=== PATIENT | male | born 1945 | race Caucasian/White ===

== ENCOUNTER 2017-11-28 13:25 | Outpatient (CLI) | payer MEDICARE ==
[2017-11-28 14:07] LABS: Bilirubin Negative (Negative); Blood, Urine Trace (Negative); Clarity CLEAR (Clear); Glucose, Urine (Dipstick) Negative (Negative); Leukocyte Negative (Negative); Nitrite Negative (Negative); Protein, Urine (Dipstick) Negative (Neg-Trace); Specific Gravity, Urine 1.016 (1.002-1.036); Urobilinogen 0.2 mg/dL (0.2-1.0)
[2017-11-28 14:08] LABS: Hemoglobin 16.7 g/dL (14.0-18.0); Mean Corpuscular HGB CONC 34.1 g/dL (32.0-36.0); Mean Corpuscular Hemoglobin 32.7 pg (27.0-31.0); Mean Platelet Volume 6.4 fL (7.4-10.4); Platelet Count 321 thou/uL (130-400); RBC Distribution Width 11.5 % (11.5-14.5); Red Blood Cell (RBC) Count 5.11 mill/uL (4.70-6.10); White Blood Cell (WBC) Count 9.5 thou/uL (4.8-10.8)
[2017-11-28 14:09] LABS: Bacteria/HPF None Seen HPF (None Seen); Hyaline Casts/LPF 0-3 HYALINE CAST LPF (0-3 Hyaline); Squamous Epithelial None Seen HPF (0-3); WBC/HPF 0-3 HPF (0-3)
[2017-11-28 14:13] LABS: Prothrombin Time 13.6 SEC (12.0-14.7)
[2017-11-28 14:14] LABS: PTT 36.7 SEC (22.9-36.1)
[2017-11-28 14:27] LABS: Anion Gap 15 mmol/L (10-20); BUN (Urea Nitrogen) 18 mg/dL (8.4-25.7); Calc. Creatinine Clearance 0 mL/min (70-130); Calcium 9.8 mg/dL (7.8-10.44); Carbon Dioxide 27 mmol/L (23-31); Chloride 104 mmol/L (98-107); Estimated GFR-MDRD Greater than 90; Glucose 99 mg/dL (80-115); Potassium 3.8 mmol/L (3.5-5.1); Sodium 142 mmol/L (136-145)
--- NOTE | 2017-12-12 22:43 | EKG ---
Test Reason : Blood Pressure : / mmHG Vent. Rate : 053 BPM Atrial Rate : 053 BPM P-R Int : 198 ms QRS Dur : 140 ms QT Int : 438 ms P-R-T Axes : 050 -54 076 degrees QTc Int : 410 ms Sinus bradycardia Left ventricular hypertrophy with QRS widening Inferior infarct , age undetermined Anterolateral infarct , age undetermined Abnormal ECG No previous ECGs available Confirmed by Deena AVINA ([id number]) on 12/12/2017 10:43:02 PM Referred By: BRIA Confirmed By:Deena AVINA
== END 2017-11-28 13:26 | disposition home or self-care (01) ==
LOC: LABBT 13:25
PROVIDERS: ATTEND Urology
DX: Z01.818 Encounter for other preprocedural examination (principal); N20.0 Calculus of kidney
CPT/HCPCS: 80048; 81001; 85027; 85610; 85730; 87086; 93005; 93010

== ENCOUNTER 2017-12-11 11:01 | Day surgery (SDC) | payer MEDICARE ==
[2017-12-11] MEDS ORDERED: Levofloxacin 500 mg/D5W 100 ml Premix Bag ONE (12:49)
[2017-12-11] MEDS ORDERED: Midazolam HCl 2 mg/2 ml Vial ONE (13:29)
[2017-12-11] MEDS ORDERED: Fentanyl 100 MCG/2 ML VIAL ONE (13:30)
[2017-12-11] MEDS ORDERED: PROPOFOL 200 MG/20 ML VIAL ONE (13:53)
[2017-12-11] MEDS ORDERED: ePHEDrine/0.9% NaCl/PF SYRINGE 50 mg/10 ml ONE (13:53)
[2017-12-11] MEDS ORDERED: Lidocaine 1% PF 5 ML VIAL ONE (13:53)
--- NOTE | 2017-12-11 18:23 | OP ---
DATE OF PROCEDURE: 12/11/2017 SERVICE: Urology. SURGEON: Fraknlyn Castelan M.D. PREOPERATIVE DIAGNOSIS: Right renal stone. POSTOPERATIVE DIAGNOSIS: Right renal stone. PROCEDURE PERFORMED: Right ureteroscopy, laser lithotripsy, basket extraction of stone, and placemen t of a 6 x 30 double-J stent. INDICATIONS FOR PROCEDURE: Mr. Graham is a 72-year-old white male who I have followed for BPH and n ephrolithiasis. He had a known 6-mm stone in his right kidney, which we had been following; unfortun ately, they grew significantly to 13 mm on repeat x-ray at 1 year. Due to the significant interval g maren, I have recommended we treat the stone and he is now coming in for said procedure. Risks and b enefits have been discussed and he has agreed to proceed forward. DESCRIPTION OF PROCEDURE: After identification of his armband and verification of consent, the patie ramon was brought back to the operating room and underwent general anesthesia with LMA. He was placed i n dorsal lithotomy position and prepped and draped in usual sterile fashion. After appropriate timeo ut, a lubricated 22 Nigerien rigid cystoscope was introduced per urethra into the bladder. The bladder showed grade 2-3 trabeculation with multiple cellules, no diverticula. Ureter was in orthotopic loc ation. The prostate was hypertrophic. He did start bleeding during the case just due to the passage of the cystoscope. The right ureteral orifice was cannulated with a 0.035 sensor wire up to the lev el of the renal pelvis. The cystoscope was then removed after the bladder was emptied and a dual-lum en catheter was advanced over the sensor wire into the mid ureter. An Amplatz Super Stiff wire was t hen passed through the second lumen up to the level of the renal pelvis and the dual lumen removed an d 11/13 x 46 cm ureteral access sheath was then advanced over the Super Stiff wire up to the level of the proximal ureter. Inner cannula and the Super Stiff wire were then removed leaving the outer she ath in place and the sensor wire was in place as a safety wire. A flexible digital ureteroscope was then passed into the ureteral access sheath into the kidney. Attention was turned to calices. The s tone was found in one of the upper pole calices and the remainder of the cavity did not demonstrate a ny other nephrolithiasis. A 200 micron laser fiber was used to fragment the stone into small pieces on the dusting setting. A 1.9 Nigerien 0 tip nitinol basket was used to remove the larger fragments fo und at the end of fragmentation. Upon completion, there were no fragments over 1 mm in size. The re maining fragments were all just dust particulate and very small stone particles. I felt these would pass without much difficulty. A pull back ureteroscopy was employed and there were no other addition al stone fragments seen within the ureter. The ureteral access sheath and the scope were then remove d and the cystoscope was backloaded over the sensor wire back into the bladder. There was a signific ant amount of clot and blood within the bladder from bleeding from the prostate which was evacuated v ia the cystoscope. A 6 x 30 double-J stent with a string attached was advanced over the sensor wire up to the level of the renal pelvis. The wire was then removed leaving a good curl in the renal pelv is and good curl in the bladder. The bladder was evacuated using the cystoscope and then removed justina ving the string intact. The cystoscope was then put back in alongside the string to evaluate the ure thra and prostate and bladder. There was no bleeding from the bladder, but the bladder neck and some of the lobes of the prostate did not exhibit mild bleeding. I did not feel this was bad enough to w arrant any type of fulguration or resection as the bleeding should stop on its own; therefore, the cy stoscope was then removed after draining the bladder and the string affixed to the patient's penis wi th a Tegaderm. The patient was then awakened and taken to PACU for recovery in stable condition. COMPLICATIONS: None. ESTIMATED BLOOD LOSS: Minimal. RETAINED TUBES AND DRAINS: A 6 x 30 double-J stent on the right with string attached. SPECIMENS: Stone for stone analysis. DISPOSITION: The patient will be discharged home and instructed to remove his stent after approximat jarrod 1 week. I will then see him in followup in 1-2 weeks for a postop check.
== END 2017-12-11 17:20 | disposition home or self-care (01) ==
LOC: SDC 11:01
PROVIDERS: ATTEND Urology
PROC: 0TC08ZZ Extirpation of Matter from Right Kidney, Via Natural or Artificial Opening Endoscopic (ICD-10-PCS; principal; 2017-12-11)
PROC: 0T768DZ Dilation of Right Ureter with Intraluminal Device, Via Natural or Artificial Opening Endoscopic (ICD-10-PCS; 2017-12-11)
DX: N20.0 Calculus of kidney (principal); N40.0 Benign prostatic hyperplasia without lower urinary tract symptoms; I10 Essential (primary) hypertension; F17.210 Nicotine dependence, cigarettes, uncomplicated; I25.10 Atherosclerotic heart disease of native coronary artery without angina pectoris; I25.2 Old myocardial infarction; Z87.442 Personal history of urinary calculi; Z79.82 Long term (current) use of aspirin; Z79.899 Other long term (current) drug therapy
CPT/HCPCS: 52356; 76001; 82365; 88300; C1758; C1769; J1956; J2001; J2250; J2704; J3010

== ENCOUNTER 2018-01-10 07:21 | Day surgery (SDC) | payer MEDICARE ==
[2018-01-09 10:15] VITALS: BMI 26.7
[2018-01-10] MEDS ORDERED: Ketorolac Tromethamine 30 MG/ML VIAL ONE (07:57)
[2018-01-10] MEDS ORDERED: CEFAZOLIN/Water 2 GM/20 ML SYRINGE ONE (07:57)
[2018-01-10 08:11] LABS: #Eosinphils 0.4 thou/uL (0.0-0.7); #Lymphocytes 1.1 thou/uL (1.20-3.40); #Monocytes 0.7 thou/uL (0.11-0.59); #Neutrophils 7.1 thou/uL (1.40-6.50); %Basophils 0.4 % (0.0-1.0); %Eosinophils 4.2 % (0.0-10.0); %Lymphocytes 11.8 % (21.0-51.0); %Monocytes 7.2 % (0.0-10.0); %Neutrophils 76.4 % (42.0-75.0); Hemoglobin 16.1 g/dL (14.0-18.0); Mean Corpuscular HGB CONC 33.8 g/dL (32.0-36.0); Mean Corpuscular Hemoglobin 33.6 pg (27.0-31.0); Mean Corpuscular Volume 99.4 fl (80.0-94.0); Mean Platelet Volume 6.4 fL (7.4-10.4); Platelet Count 308 thou/uL (130-400); RBC Distribution Width 11.6 % (11.5-14.5); Red Blood Cell (RBC) Count 4.79 mill/uL (4.70-6.10); White Blood Cell (WBC) Count 9.3 thou/uL (4.8-10.8)
[2018-01-10 08:18] LABS: Anion Gap 11 mmol/L (10-20); BUN (Urea Nitrogen) 12 mg/dL (8.4-25.7); Calc. Creatinine Clearance 121 mL/min (70-130); Calcium 9.6 mg/dL (7.8-10.44); Carbon Dioxide 31 mmol/L (23-31); Chloride 102 mmol/L (98-107); Estimated GFR-MDRD Greater than 90; Glucose 110 mg/dL (80-115); Potassium 3.7 mmol/L (3.5-5.1); Sodium 140 mmol/L (136-145)
[2018-01-10] MEDS ORDERED: Bupivacaine/Epinephrine 0.25% 30 ML VIAL ONE (08:54)
[2018-01-10] MEDS ORDERED: Fentanyl 100 MCG/2 ML VIAL ONE (08:56)
[2018-01-10] MEDS ORDERED: HYDROcodone/Acetaminophen 7.5/325 mg Tablet ONE ×2 (11:52→13:13)
[2018-01-10] MEDS ORDERED: Dexamethasone 20 MG/5 ML VIAL ONE (13:25)
[2018-01-10] MEDS ORDERED: PHENYLEPHRINE-NS 100 MCG/ML 10 ML SYRINGE ONE (13:25)
[2018-01-10] MEDS ORDERED: Lidocaine 1% PF 5 ML VIAL ONE (13:25)
[2018-01-10] MEDS ORDERED: Glycopyrrolate 0.2 MG/ML 5 ML SYRINGE ONE (13:25)
[2018-01-10] MEDS ORDERED: PROPOFOL 200 MG/20 ML VIAL ONE (13:25)
[2018-01-10] MEDS ORDERED: ePHEDrine/0.9% NaCl/PF SYRINGE 50 mg/10 ml ONE (13:25)
[2018-01-10] MEDS ORDERED: Tamsulosin HCl 0.4 MG CAP ONE (15:39)
--- NOTE | 2018-01-11 09:38 | OP ---
DATE OF PROCEDURE: 01/10/2018 PREOPERATIVE DIAGNOSIS: Right inguinal hernia. POSTOPERATIVE DIAGNOSIS: Right inguinal hernia, direct. OPERATION PERFORMED: Robotic right inguinal hernia repair. SURGEON: David Kilpatrick M.D. ANESTHESIA: General endotracheal. INDICATIONS: The patient is a 72-year-old white male. He presents with a large visible and palpable right inguinal hernia and is taken to the operating room at this time for repair. Informed consent was obtained. The patient was taken to the operating room where general endotrachea l anesthesia was obtained with the patient in supine position. Huizar catheter was placed, abdominal hair was trimmed and the abdomen was prepped with ChloraPrep and draped in sterile fashion. Local an esthetic was infiltrated and 12 mm supraumbilical incision was created, through which a Veress needle was passed into the peritoneal cavity and pneumoperitoneum established using carbon dioxide up to a pressure of 15 mmHg. A 12-mm trocar port was passed through the same incision. Laparoscopic camera was passed through this port. Under direct vision, 2 additional 8 mm robotic ports were placed on ei ther side of midline at the supraumbilical level. The robotic camera was passed through the supraumbilical port and the robot was then docked to the po rts and to the camera. The operation was continued from the robotic console. The hernia was clearly identified. A transverse peritoneal incision was created several centimeters above the hernia. A preperitoneal dissection was then carried inferiorly. To the medial aspect, dis section was carried down onto the pubic tubercle and Vitaliy's ligament. Laterally, the iliopubic tra ct was dissected and a space was created for placement of the mesh. In the center, the peritoneum wa s carefully dissected out of the hernia defect and away from surrounding structures. The peritoneum was dissected off of the cord structures well past the bifurcation with the vas deferens. Once the preperitoneal space was fully dissected, a large 3DMax mesh patch was obtained and placed in the preperitoneal space. It was secured in place with 3 interrupted sutures of 3-0 Vicryl, one to t he pubic tubercle, one to the anterior/superior aspect of the mesh patch, and one to the lateral aspe ct of the mesh tail. Each of these 2-0 Vicryl sutures were tied intracorporeal. The peritoneum was then closed using a running suture of 3-0 Stratafix. Once the area was closed and hemostasis was meticulous, the robot was undocked from the instruments a nd operation was continued at the table again. The fascia at the supraumbilical port was closed with 0 Vicryl suture using a GraNee needle. All por ts and instruments removed under direct vision. Pneumoperitoneum was carefully evacuated. Quarter p ercent Marcaine with epinephrine was infiltrated at each port site. Skin edges approximated with 4-0 Monocryl subcuticular suture. Dermabond was placed externally. There were no complications. Patie nt tolerated the procedure well and was taken to recovery room in stable condition. FINDINGS: On this patient, the hernia was a large direct hernia. There was no evidence of an indire ct hernia. There were no complications and blood loss was negligible. Patient tolerated the procedu re well.
== END 2018-01-10 17:40 | disposition home or self-care (01) ==
LOC: SDC 07:21
PROVIDERS: ATTEND Specialist
PROC: 0YU54JZ Supplement Right Inguinal Region with Synthetic Substitute, Percutaneous Endoscopic Approach (ICD-10-PCS; principal; 2018-01-10)
DX: K40.90 Unilateral inguinal hernia, without obstruction or gangrene, not specified as recurrent (principal); Z88.8 Allergy status to other drugs, medicaments and biological substances; Z79.82 Long term (current) use of aspirin; Z79.899 Other long term (current) drug therapy
CPT/HCPCS: 49650; 80048; 85025; C1781; 36415; J0131; J1100; J1885; J2001; J2704; J3010

== ENCOUNTER 2018-12-11 09:21 | Outpatient (CLI) | payer MEDICARE ==
[~2018-12-11 09:21] MED LIST: Iopamidol 370 76% 100 ML VIAL ONE
[2018-12-11 10:07] LABS: Estimated GFR-MDRD - POC Greater than 90
--- NOTE | 2018-12-11 12:14 | CT ---
EXAM: CT Abdomen Pelvis W WO con PROVIDED CLINICAL HISTORY: Gross hematuria COMPARISON: 01/08/2017 FINDINGS: The visualized lung bases are free of significant opacity. Tiny nonobstructing inferior pole right renal calculus. No additional urinary tract calculi are evide nt. Simple appearing renal cysts are seen. Pericapsular fat density at the cranial aspects of the right h epatic lobe at the dome compatible with displaced epiploic appendage. Several small hypodensities inv olving the liver too small to definitively characterize but likely reflecting cysts. The delayed images demonstrate no evidence for filling defect involving the renal collecting systems, opacified ureters or urinary bladder. Enlarged and heterogeneous prostate gland is redemonstrated. Postoperative changes of endovascular stent grafting of abdominal aortic aneurysm redemonstrated with grossly stable dimensions of the excluded aortic lumen. No bowel dilatation, inflammatory fat stranding, free fluid or lymph node enlargement apparent. The osseous structures demonstrate no concerning osteoblastic or osteolytic lesions. IMPRESSION: 1. Tiny nonobstructing inferior pole right renal calculus. Significant decrease in stone burden on th e right with respect to the prior study. 2. Chronic findings as above.
== END 2018-12-11 09:22 | disposition home or self-care (01) ==
LOC: SCSCT 09:21
PROVIDERS: ATTEND Urology
DX: R31.0 Gross hematuria (principal)
CPT/HCPCS: 74178; 82565; Q9967

== ENCOUNTER 2019-03-26 12:46 | Outpatient (CLI) | payer MEDICARE ==
--- NOTE | 2019-03-26 13:28 | RAD ---
RIGHT HIP TWO VIEWS: 03/26/19 HISTORY: Right hip pain. FINDINGS: Extensive degenerative changes are seen in the right hip manifested by osteophyte formation and joint space narrowing and subchondral cyst formation. No fracture, dislocation or bony destruction is iden tified. IMPRESSION: Severe right hip osteoarthritis. POS: OFF
== END 2019-03-26 12:47 | disposition home or self-care (01) ==
LOC: SCSRAD 12:46
PROVIDERS: ATTEND Family Medicine
DX: M79.604 Pain in right leg (principal); M16.11 Unilateral primary osteoarthritis, right hip